=== PATIENT | female | born 1995 | race Caucasian/White ===

== ENCOUNTER → 2023-08-27 06:26 | Day surgery (SDC) | payer BC, SELFPAY | LOC: GI 06:26 | PROVIDERS: ATTENDING PHYSICIAN Internal Medicine Gastroenterology; FAMILY PHYSICIAN Family Medicine | DX: K52.9 Noninfective gastroenteritis and colitis, unspecified (principal); R63.4 Abnormal weight loss; R10.84 Generalized abdominal pain | CPT/HCPCS: 45380; 43239; 88305; 88342 ==

== ENCOUNTER 2023-08-27 14:50 | Emergency (ER) | payer BC, SELFPAY ==
[2023-08-27 14:53] VITALS: BP 118/85
[2023-08-27 15:26] LABS: % Basophils 1.1 % (0-2); % Eosinophils 0.3 % (0-6); % Immature Granulocytes 0.3 % (0-0.5); % Lymphocytes 38.3 % (20.5-51.1); % Monocytes 6.2 % (1.7-9.3); % Neutrophils 53.8 % (42.2-75.2); Absolute Basophils 0.1 10^3/uL (0-0.2); Absolute Lymphocytes 2.5 10^3/uL (1.2-3.4); Absolute Monocytes 0.4 10^3/uL (0.1-0.6); Absolute Neutrophils 3.5 10^3/uL (1.4-6.5); Hematocrit 37.7 % (37.0-47.0); Hemoglobin 13.3 g/dL (12.0-16.0); Mean Corp Hgb Conc. 35.3 g/dL (33.0-37.0); Mean Corpuscular Hgb 32.2 pg (27.0-31.0); Mean Corpuscular Volume 91.3 fL (81.0-99.0); Mean Platelet Volume 9.3 fL (7.4-10.4); Nucleated Red Blood Cells % 0 %; Platelet Count 407 10^3/uL (130-400); Red Blood Cell Count 4.13 10^6/uL (4.20-5.40); Red Cell Dist. Width 11.8 % (11.5-14.5); White Blood Cell Count 6.4 10^3/uL (4.8-10.8)
[2023-08-27 15:34] LABS: ALT (SGPT) 13 U/L (0-35); AST (SGOT) 24 U/L (14-36); Albumin 4.2 g/dl (3.5-5.0); Alkaline Phosphatase 55 U/L (38-126); Blood Urea Nitrogen 4 mg/dl (7-17); Calcium 9.8 mg/dl (8.4-10.2); Carbon Dioxide 21 mmol/L (22-30); Chloride 109 mmol/L (98-107); Glucose 91 mg/dl (70-99); Potassium 4.4 mmol/L (3.5-5.1); Sodium 136 mmol/L (135-145); Total Bilirubin 0.6 mg/dl (0.2-1.3); Total Protein 7.4 g/dl (6.3-8.2); eGFR > 60.00
[2023-08-27 16:55] VITALS: BP 124/80
[2023-08-27] MEDS: ZOFRAN 4 MG IV (17:37)
[2023-08-27] MEDS: DILAUDID 0.5 MG IV ×2 (17:37→20:47)
[2023-08-27] MEDS: VALIUM 2 MG PO (17:37)
[2023-08-27 18:08] LABS: HCG, Serum Qualitative Screen Negative
--- NOTE | 2023-08-27 18:43 | ED.GENMED ---
History of Present Illness
General
Chief Complaint: Post Operative Problem(s)
Source: patient
Exam Limitations: none
Time Seen by Provider: 08/27/23 16:59
Nursing documentation reviewed up to this point in time: agreed with
Travel History
Have you had any contact with someone who has COVID-19?: No
Do you have any symptoms of coronavirus? Fever > 100 degrees, chills, cough, shortness of breath, sore throat, loss of taste or smell, muscle aches, or headache?: No
History of Present Illness
History of Present Illness:
Patient status post outpatient elective endoscopy and colonoscopy procedure this morning, presents to ED secondary to worsening mid back pain, which patient started to experience as she was leaving the hospital this afternoon. Patient does have
history of ankylosing spondylitis and has had upper and lower back pain in the past. Denies direct trauma. Denies loss of sensation or weakness. Denies urinary or bowel incontinence. Denies difficulty with breathing. Denies abdominal pain.
Denies nausea or vomiting. Denies fever. Patient spoke with on-call GI physician who recommended patient come to ED for an evaluation.
Past History
Past History
ED Past Medical History: Arrthythmia
ED Past Surgical History: Tonsilectomy
Social History
Tobacco: Smoker
Alcohol: Occasional
Personal: Single
Employment: Employed
Family History
Family History: Other (IBS)
Review of Systems
Review of Systems
Allergies reviewed?: Yes
All Other Systems: ROS reviewed and negative except as documented in HPI and ROS
Constitutional: Reports no symptoms
EENT: Reports no symptoms
Respiratory: Reports no symptoms
Cardiac: Reports no symptoms
: Reports no symptoms; Denies incontinence
Musculoskeletal: Reports back pain
Skin: Reports no symptoms
Neurological: Reports no symptoms
Phy Exam
Physical Exam
Physical Exam:
Physical Exam
General: no apparent distress, not acutely ill. afebrile.
Head: nc/at. eomi
Neck: supple. no meningeal signs.
Heart: s1/s2 regular rate and rhythm, no murmur. equal radial pulses.
Lungs: no acute respiratory distress. clear bilaterally
Abdomen: normal bowel sounds. not tender.
Back: focal left mid back tenderness at level of T12/L1
Neuro: alert and oriented. no focal neurological deficits
Skin: no rash
Psychiatric: well kept. interactive and cooperative
Extremities: no edema. no calf tenderness.
Course
Orders/Labs/Results
Orders:
Orders
08/27/23 15:07
CMP [Comprehensive Metabolic Panel] Urgent
Complete Blood Count/With Diff Urgent
HCG, Serum Qualitative Screen Urgent
Comment: ADD ON
08/27/23 17:26
Add On- LAB Urgent
Tests Added?: serum b-hcg, qualitative
HYDROmorphone [Dilaudid] 0.5 mg IV NOW STA
08/27/23 17:31
Diazepam [Valium] 2 mg PO NOW STA
Ondansetron Injectable [Zofran] 4 mg IV NOW STA
08/27/23 18:21
CR Obstruct Series W/pa Chest Urgent
Comment:
Reason For Exam: post op pain
08/27/23 19:08
Urinalysis Reflex To Culture Urgent
Date Specimen was Collected: 08/27/23
Time Specimen was Collected: 19:02
08/27/23 20:05
CT Abd/pelvis W Iv Cont Urgent
Comment:
Reason For Exam: mid back pain after colonoscopy
HYDROmorphone [Dilaudid] 0.5 mg IV NOW STA
08/27/23 20:06
Dexamethasone Sod Phosphate [Decadron] 10 mg IV NOW STA
08/27/23 21:46
Oxycodone/Acetaminophen [Percocet 5/325] 1 tablet PO NOW STA
Abnormal Lab Results
08/27/23
15:07
RBC 4.13 L 10^6/uL
(4.20-5.40)
MCH 32.2 H pg
(27.0-31.0)
Plt Count 407 H 10^3/uL
(130-400)
Chloride 109 H mmol/L
(98-107)
Carbon Dioxide 21 L mmol/L
(22-30)
BUN 4 L mg/dl
(7-17)
08/27/23 15:07
08/27/23 15:07
Vital Signs
Initial and Last Documented VS:
Initial Vital Signs
Temp Pulse Resp BP Pulse Ox
98.1 F 95 18 118/85 100
08/27/23 14:53 08/27/23 14:53 08/27/23 14:53 08/27/23 14:53 08/27/23 14:53
Last Documented Vital Signs
Temp Pulse Resp BP Pulse Ox
98.1 F 78 18 122/76 98
08/27/23 14:53 08/27/23 21:57 08/27/23 21:57 08/27/23 21:57 08/27/23 21:57
MDM/Problems Addressed
MDM/Problems Addressed:
Patient with an unremarkable workup in ED, including blood work and multiple imaging studies. History and exam consistent with likely back pain, with associated muscle spasm, secondary to procedural position during colonoscopy. Otherwise, patient
is afebrile, hemodynamic stable, and neurologically intact, at time of discharge to the care of her friend. Patient will be advised to apply warm compress, along with rest and prescribed medications, as needed.
*Critical Care Note
Total Time (30-74mins, 75-104mins- exclusive of procedures): Not Applicable
ED Attending Note
-
Portions of this chart may have been created with voice recognition software.� Occasional wrong word or��sound alike� substitutions may have occurred due to the inherent limitations of voice recognition software.
Discharge Plan
Departure
Patient Disposition: Home (Routine Discharge)
Date of Disposition: 08/27/23
Time of Disposition: 21:46
Patient with high blood pressure during this ER visit?: Yes
Condition: Good
Discharge Problem:
Back pain
Instructions: Back Pain
Prescriptions:
New
oxycodone-acetaminophen [Percocet] 5-325 mg Tablet
1 tab PO Q6HPRN PRN (Reason: pain) Qty: 12 0RF
methylprednisolone [Medrol (Carlos)] 4 mg tablets,dose pack
4 mg PO DAILY Qty: 21 0RF
Rx Instructions:
As directed
No Action
Control
1 tab PO DAILY
acetaminophen 325 MG tablet
650 mg PO Q4HPRN PRN (Reason: mild pain/FARRELL/temp> 100.4F) 0RF
ibuprofen 600 MG tablet
600 mg PO Q6HPRN PRN (Reason: finger pain) 10 Days Qty: 40 0RF
Rx Instructions:
Do not take on empty stomach. Take with food
oxycodone-acetaminophen [Percocet] 5-325 mg tablet
1 tab PO Q6HPRN PRN (Reason: pain) Qty: 10 0RF
Referrals:
Anamaria Greer MD [Family Provider] -
Activity Restrictions/Additional Instructions:
As discussed, please follow-up with your primary care physician and/or orthopedic surgeon for further evaluation and treatment. Your prescriptions have been sent electronically to [facility] pharmacy in [place].
Interventions
Interventions:
*Risk Screen - Suicide Last Done: 08/27/23 16:52
*General Assessment Last Done: 08/27/23 16:52
*Neglect/Abuse Screening Last Done: 08/27/23 16:52
ED- Fall Risk Assessment Last Done: 08/27/23 17:24
*ED COVID-19 Vaccine History Last Done: 08/27/23 16:52
*Nursing Disposition Last Done: 08/27/23 21:59
ED-Skin Assessment Last Done: 08/27/23 17:23
Discharge Date and Time
Discharge Date/Time: 08/27/23 21:59
[2023-08-27 19:31] LABS: Urine Albumin Negative (Neg - Trace); Urine Bilirubin Negative (Negative); Urine Character Clear (Clear); Urine Color Yellow; Urine Glucose Negative (Negative); Urine Ketone Negative (Negative); Urine Leukocyte Negative (Negative); Urine Nitrite Negative (Negative); Urine Occult Blood Negative (Negative); Urine Urobilinogen Negative (Neg - 1+)
[2023-08-27] MEDS: DECADRON 10 MG IV (20:46)
[2023-08-27] MEDS: PERCOCET 5/325 1 TABLET PO (21:51)
[2023-08-27 21:57] VITALS: BP 122/76
== END 2023-08-27 21:59 | disposition home or self-care (01) ==
LOC: EMR 14:50
PROVIDERS: Physician Assistant Medical; EMERGENCY PHYSICIAN Emergency Medicine; FAMILY PHYSICIAN Family Medicine
DX: M54.6 Pain in thoracic spine (principal); F17.200 Nicotine dependence, unspecified, uncomplicated; R03.0 Elevated blood-pressure reading, without diagnosis of hypertension
CPT/HCPCS: 99285; 96374; 96375 ×2; 96376; 74022; 74177; 80053; 81003; 84703; 85025; Q9967

== ENCOUNTER → 2023-11-27 15:18 | Outpatient (REF) | payer BC, SELFPAY | LOC: RAD 15:18 | PROVIDERS: ATTENDING PHYSICIAN Family Medicine | DX: R10.2 Pelvic and perineal pain (principal); R31.29 Other microscopic hematuria | CPT/HCPCS: 76770; 76830; 76856 ==

== ENCOUNTER → 2024-03-05 18:28 | Outpatient (REF) | payer BC, SELFPAY | LOC: RAD 18:28 | PROVIDERS: ATTENDING PHYSICIAN Nurse Practitioner Adult Health; FAMILY PHYSICIAN Family Medicine | DX: R07.89 Other chest pain (principal); R53.83 Other fatigue; R52 Pain, unspecified | CPT/HCPCS: 71046 ==

== ENCOUNTER → 2024-08-24 16:58 | Outpatient (REF) | payer BC, SELFPAY | LOC: RAD 16:58 | PROVIDERS: ATTENDING PHYSICIAN Family Medicine | DX: R07.89 Other chest pain (principal); R06.02 Shortness of breath; M54.6 Pain in thoracic spine | CPT/HCPCS: 71046; 72072 ==

== ENCOUNTER 2024-08-25 12:45 | Emergency (ER) | payer BC, SELFPAY ==
[2024-08-25 12:52] VITALS: BP 147/111
[2024-08-25 13:17] LABS: % Basophils 0.1 % (0-2); % Eosinophils 0.6 % (0-6); % Immature Granulocytes 0.3 % (0-0.5); % Lymphocytes 25.9 % (20.5-51.1); % Monocytes 4.3 % (1.7-9.3); % Neutrophils 68.8 % (42.2-75.2); Absolute Eosinophils 0.1 10^3/uL (0-0.7); Absolute Lymphocytes 2.8 10^3/uL (1.2-3.4); Absolute Monocytes 0.5 10^3/uL (0.1-0.6); Absolute Neutrophils 7.5 10^3/uL (1.4-6.5); Hematocrit 40.2 % (37.0-47.0); Hemoglobin 13.8 g/dL (12.0-16.0); Mean Corp Hgb Conc. 34.3 g/dL (33.0-37.0); Mean Corpuscular Hgb 31.7 pg (27.0-31.0); Mean Corpuscular Volume 92.4 fL (81.0-99.0); Mean Platelet Volume 8.3 fL (7.4-10.4); Nucleated Red Blood Cells % 0 %; Platelet Count 402 10^3/uL (130-400); Red Blood Cell Count 4.35 10^6/uL (4.20-5.40); Red Cell Dist. Width 12.3 % (11.5-14.5); White Blood Cell Count 10.9 10^3/uL (4.8-10.8)
[2024-08-25 13:28] LABS: HCG, Serum Qualitative Screen Negative
[2024-08-25 13:34] LABS: ALT (SGPT) 12 U/L (0-35); AST (SGOT) 20 U/L (14-36); Albumin 4.3 g/dl (3.5-5.0); Alkaline Phosphatase 72 U/L (38-126); Blood Urea Nitrogen 9 mg/dl (7-17); Calcium 9.6 mg/dl (8.4-10.2); Carbon Dioxide 27 mmol/L (22-30); Chloride 98 mmol/L (98-107); Glucose 101 mg/dl (70-99); Potassium 4.2 mmol/L (3.5-5.1); Sodium 134 mmol/L (135-145); Total Bilirubin 1.1 mg/dl (0.2-1.3); Total Protein 7.2 g/dl (6.3-8.2); eGFR > 60.00
[2024-08-25 14:01] LABS: TSH 2.81 uIU/ml (0.47-4.68)
--- NOTE | 2024-08-25 16:54 | ED.GENMED ---
History of Present Illness
<Lavinia Joseph PA-C - Last Filed: 08/25/24 20:56>
General
Chief Complaint: Heart Rate Problem
Source: patient
Exam Limitations: none
Time Seen by Provider: 08/25/24 16:18
Nursing documentation reviewed up to this point in time: agreed with
History of Present Illness
History of Present Illness:
28-year-old female with history ankylosing spondylitis and fibromyalgia presenting to the emergency department for evaluation of chest pain. Patient reports 2.5 weeks of intermittent sharp mid chest pain without any radiation to back, jaw.
Symptoms seem to come on 'randomly 'and are not clearly exertional or pleuritic in nature. Patient has been following with her PCP regarding this and recently finished a 10-day prednisone taper course and was treated with Flexeril and ibuprofen.
Patient reports little improvement. Today�she also notes a hive-like rash across her body which is somewhat improved.
Patient denies any shortness of breath, back pain, cough or other URI symptoms. No abdominal pain.
Patient does report history of tachycardia of unknown origin.
Patient denies recent travel or recent surgery. She is on an OCP. She does have a family history of blood clots.
Past History
<Lavinia Joseph PA-C - Last Filed: 08/25/24 20:56>
Past History
ED Past Medical History: Arrthythmia
ED Past Surgical History: Tonsilectomy
Social History
Tobacco: Smoker
Alcohol: Occasional
Personal: Single
Employment: Employed
Family History
Family History: Other (IBS)
Review of Systems
<PRISCILLA Claire Last Filed: 08/25/24 20:56>
Review of Systems
Allergies reviewed?: Yes
All Other Systems: ROS reviewed and negative except as documented in HPI and ROS
Phy Exam
<PRISCILLA Claire Last Filed: 08/25/24 20:56>
Physical Exam
Physical Exam:
Vitals: Hypertensive, tachycardic
General: Patient is well appearing, no acute distress. Nontoxic appearing
Skin: Warm and dry, no rashes or lesions
Head: Normocephalic, atraumatic
Eyes: Sclera nonicteric. EOMs intact. No nystagmus.
Throat: Protecting airway
Neck: Normal ROM, no cervical spine tenderness, no meningismus
Cardiac: Regular rate and rhythm, no murmurs. No reproducible chest wall tenderness
Pulm: Normal respiratory effort, no wheezes, rales, rhonchi heard on exam.
Abdomen: Abdomen soft. No abdominal tenderness.
Extremities: No evidence of cyanosis or edema. Negative Homans' sign bilaterally. Palpable and equal distal pulses
Neuro: AAOx3. Grossly intact.
Psychiatric: Normal affect.
Scores
<Lavinia Joseph PA-C - Last Filed: 08/25/24 20:56>
PERC Rule Criteria
Age <50 years: Yes
HR <100 bpm: No
Room air oxygen sat >94%: Yes
History of DVT or PE: No
Recent trauma or surgery: No
Hemoptysis: No
Exogenous estrogen: Yes
Clinical signs suggestive of DVT: No
: No
Considered low risk for PE: Yes
PERC Score: 2
PE can be excluded by PERC: No
<German Acosta, - Last Filed: 08/25/24 19:46>
PERC Rule Criteria
PERC Score: 2
PE can be excluded by PERC: No
Course
<Lavinia Joseph PA-C - Last Filed: 08/25/24 20:56>
Orders/Labs/Results
Orders:
Orders
08/25/24 12:57
EKG [Electrocardiogram (*1)] Urgent
Reason for Study: Tachycardia
EKG- Treatment ONCE
Test Result ONCE
08/25/24 13:06
Complete Blood Count/With Diff Urgent
Comprehensive Metabolic Panel Urgent
HCG, Serum Qualitative Screen Urgent
Monotest Urgent
Comment: ADD ON
TSH Urgent
08/25/24 16:45
Add On- LAB Urgent
Tests Added?: monospot
0.9% Sodium Chloride 1000 ml [Nss] 1,000 ml IV BOLUS
Ketorolac [Toradol] 15 mg IV NOW STA
08/25/24 16:59
COVID-19 Antigen Urgent
Source: Nasal Swab
D-Dimer Urgent
Troponin I Urgent
Influenza A+B Rapid Molecular Urgent
OVIDIO Source: Nasal Swab
Specimen Description:
08/25/24 17:33
CT Chest PE Study Urgent
Comment:
Reason For Exam: chest pain, elevated dimer
08/25/24 17:50
Acetaminophen [Tylenol] 650 mg PO NOW STA
Abnormal Lab Results
08/25/24 08/25/24
13:06 16:59
WBC 10.9 H 10^3/uL
(4.8-10.8)
MCH 31.7 H pg
(27.0-31.0)
Plt Count 402 H 10^3/uL
(130-400)
Absolute Neuts (auto) 7.5 H 10^3/uL
(1.4-6.5)
D-Dimer 1.69 H ug/mlFEU
(0.00-0.50)
Sodium 134 L mmol/L
(135-145)
Glucose 101 H mg/dl
(70-99)
08/25/24 13:06
08/25/24 13:06
Vital Signs
Pulse: 98
Initial and Last Documented VS:
Initial Vital Signs
Temp Pulse Resp BP Pulse Ox
98.0 F 128 18 147/111 99
08/25/24 12:52 08/25/24 12:52 08/25/24 12:52 08/25/24 12:52 08/25/24 12:52
Last Documented Vital Signs
Temp Pulse Resp BP Pulse Ox
98.0 F 98 18 120/81 98
08/25/24 12:52 08/25/24 19:48 08/25/24 12:52 08/25/24 19:25 08/25/24 19:26
<German Acosta, DO - Last Filed: 08/25/24 19:46>
Orders/Labs/Results
Orders:
Orders
08/25/24 12:57
EKG [Electrocardiogram (*1)] Urgent
Reason for Study: Tachycardia
EKG- Treatment ONCE
Test Result ONCE
08/25/24 13:06
Complete Blood Count/With Diff Urgent
Comprehensive Metabolic Panel Urgent
HCG, Serum Qualitative Screen Urgent
Monotest Urgent
Comment: ADD ON
TSH Urgent
08/25/24 16:45
Add On- LAB Urgent
Tests Added?: monospot
0.9% Sodium Chloride 1000 ml [Nss] 1,000 ml IV BOLUS
Ketorolac [Toradol] 15 mg IV NOW STA
08/25/24 16:59
COVID-19 Antigen Urgent
Source: Nasal Swab
D-Dimer Urgent
Troponin I Urgent
Influenza A+B Rapid Molecular Urgent
OVIDIO Source: Nasal Swab
Specimen Description:
08/25/24 17:33
CT Chest PE Study Urgent
Comment:
Reason For Exam: chest pain, elevated dimer
08/25/24 17:50
Acetaminophen [Tylenol] 650 mg PO NOW STA
Abnormal Lab Results
08/25/24 08/25/24
13:06 16:59
WBC 10.9 H 10^3/uL
(4.8-10.8)
MCH 31.7 H pg
(27.0-31.0)
Plt Count 402 H 10^3/uL
(130-400)
Absolute Neuts (auto) 7.5 H 10^3/uL
(1.4-6.5)
D-Dimer 1.69 H ug/mlFEU
(0.00-0.50)
Sodium 134 L mmol/L
(135-145)
Glucose 101 H mg/dl
(70-99)
08/25/24 13:06
08/25/24 13:06
Vital Signs
Initial and Last Documented VS:
Initial Vital Signs
Temp Pulse Resp BP Pulse Ox
98.0 F 128 18 147/111 99
08/25/24 12:52 08/25/24 12:52 08/25/24 12:52 08/25/24 12:52 08/25/24 12:52
Last Documented Vital Signs
Temp Pulse Resp BP Pulse Ox
98.0 F 98 18 120/81 98
08/25/24 12:52 08/25/24 19:48 08/25/24 12:52 08/25/24 19:25 08/25/24 19:26
<Lavinia Joseph PA-C - Last Filed: 08/25/24 20:56>
MDM/Problems Addressed
Differential Diagnosis Includes:
Not limited to: Viral illness, myocarditis, pericarditis, pulmonary embolism, urticaria, etc.
MDM/Problems Addressed:
28-year-old female with history as documented presenting with intermittent chest pain for the past 2.5 weeks now with new onset rash. Also notes elevated heart rate which is somewhat chronic for patient. No shortness of breath, lower extremity
swelling. She has completed prednisone taper course and anti-inflammatories with PCP. Patient initially hypertensive and tachycardic on arrival although did normalize in ED. Physical exam as above. Patient appears mildly anxious although no
apparent distress. Patient tachycardic with normal rhythm. Lungs clear bilaterally. Abdomen soft nontender. No swelling or edema of bilateral lower extremities. Patient has palpable and equal distal pulses bilaterally. No rash on exam
currently. EKG obtained in triage shows sinus tachycardia without acute ischemic changes. Labs initiated in triage without acute abnormalities. TSH normal. Differential diagnosis broad at this time. Did evaluate pictures of rash from earlier
which appear similar to hives. Was able to obtain patient's chest x-ray performed outpatient yesterday which is without any abnormalities. Possible underlying viral cause. Will check troponin. No clinical evidence of DVT on exam. Feel pulmonary
embolism unlikely although unable to rule out PERC criteria given tachycardia and OCP use. Will check D-dimer and viral swabs. Will give Toradol and fluids.
Update: Dimer elevated to 1.69. CTA chest pending. Viral swabs negative, including mono. Troponin undetectable. Do not suspect ACS
Update: CTA chest without any acute abnormalities. On reassessment�she does still have mild chest discomfort although heart rate has normalized to upper 90s. Unknown exact etiology of chest pain today. Rash is dissipated. Low suspicion for acute
cardiac/pulmonary process. This may be related to possible underlying autoimmune conditions or musculoskeletal in nature. Lengthy discussion with patient regarding return precautions. Advised with primary care and rheumatology follow-up
outpatient. All questions answered. Patient seen with attending physician
Chronic conditions affecting care:
N/A
Acute Exacerbation and/or Progression of Chronic Illness:
N/A
<Lavinia Joseph PA-C - Last Filed: 08/25/24 20:56>
*Radiology
Radiology exam reviewed: radiology read reviewed
*Pulse Oximetry
Patient hypoxic: no
*EKG
Interpreted by ED Provider?: Yes
EKG Intrepretation Date: 08/25/24
Interpretation: abnormal
Comparison EKG: no comparison EKG present
Heart Rate: 113
Rate: tachycardiac
Rhythm: sinus
Bradley: normal axis
Interval: normal interval
QRS Pattern: normal QRS
Ischemia: no ischemia
*Mail Manager Interpretation
Rate: Mail Manager- N/A
*Critical Care Note
Total Time (30-74mins, 75-104mins- exclusive of procedures): Not Applicable
<Lavinia Joseph PA-C - Last Filed: 08/25/24 20:56>
Patient Management
Escalation/DeEscalation of care consider admission/obs:
Admit not indicated
ED Attending Note
<Lavinia Joseph PA-C - Last Filed: 08/25/24 20:56>
-
Portions of this chart may have been created with voice recognition software.� Occasional wrong word or��sound alike� substitutions may have occurred due to the inherent limitations of voice recognition software.
<German Acosta, - Last Filed: 08/25/24 19:46>
ED Attending Note
Patient seen and examined by attending physician: Yes
I performed a history and physical exam of patient and discussed management with resident, I reviewed resident's note and agree with documented findings and plan of care.: Yes
ED Attending Note:
I reviewed and agree with history and treatment plan by Lavinia Joseph. My exam revealed
Physical Exam
General: no apparent distress, not acutely ill
Neck: supple. no meningeal signs. normal posterior pharynx
Heart: s1/s2 regular rate and rhythm, no murmur. equal radial
pulses.
HEENT: Pupils equal round reactive to light, EOMI
Lungs: no acute respiratory distress. clear bilaterally
Abdomen: normal bowel sounds. not tender. no CVAT
Neuro: alert and oriented. no focal neurological deficits cranial nerves II through XII intact
Skin: no rash
Psychiatric: well kept. interactive and cooperative
Extremities: no edema. no calf tenderness. negative homans. good distal pulses
Unclear etiology of pain, possibly musculoskeletal. Do not suspect PE or ACS. Unclear etiology of rash that is now dissipated. Stable for discharge. Follow-up with primary care and rheumatology.
Discharge Plan
Departure
Patient Disposition: Home (Routine Discharge)
Date of Disposition: 08/25/24
Time of Disposition: 19:44
Patient with high blood pressure during this ER visit?: Yes
Discharge Problem:
Chest pain
Instructions: Tachycardia, Chest Pain
Prescriptions:
No Action
Control
1 tab PO DAILY
acetaminophen 325 MG tablet
650 mg PO Q4HPRN PRN (Reason: mild pain/FARRELL/temp> 100.4F) 0RF
ibuprofen 600 MG tablet
600 mg PO Q6HPRN PRN (Reason: finger pain) 10 Days Qty: 40 0RF
Rx Instructions:
Do not take on empty stomach. Take with food
oxycodone-acetaminophen [Percocet] 5-325 mg tablet
1 tab PO Q6HPRN PRN (Reason: pain) Qty: 10 0RF
oxycodone-acetaminophen [Percocet] 5-325 mg Tablet
1 tab PO Q6HPRN PRN (Reason: pain) Qty: 12 0RF
methylprednisolone [Medrol (Carlos)] 4 mg tablets,dose pack
4 mg PO DAILY Qty: 21 0RF
Rx Instructions:
As directed
Referrals:
Anamaria Greer MD [Family Provider] - Follow up in 2-3 days
Activity Restrictions/Additional Instructions:
As discussed�your CT scan of your chest showed no evidence of a pulmonary embolism or other acute abnormality.
You can continue to take ibuprofen as needed for discomfort. Stay well-hydrated. Get plenty of rest.
Follow-up with your primary care and rheumatology for further evaluation/management
Monitor your symptoms closely return with any acute worsening/new symptoms or any other concern
Interventions
Interventions:
*Risk Screen - Suicide Last Done: 08/25/24 12:52
*General Assessment Last Done: 08/25/24 12:52
*Neglect/Abuse Screening Last Done: 08/25/24 12:52
ED- Fall Risk Assessment Last Done: 08/25/24 16:40
*ED COVID-19 Vaccine History Last Done: 08/25/24 12:52
*Nursing Disposition Last Done: 08/25/24 20:41
ED- Cardiac Assessment Last Done: 08/25/24 16:40
ED- Pulmonary Assessment Last Done: 08/25/24 16:40
ED-Skin Assessment Last Done: 08/25/24 16:41
Discharge Date and Time
Print Language: SAMOAN
[2024-08-25] MEDS: NSS 1000 IV (17:04)
[2024-08-25] MEDS: TORADOL 15 MG IV (17:07)
[2024-08-25 17:25] LABS: D-Dimer 1.69 ug/mlFEU (0.00-0.50)
[2024-08-25 17:28] LABS: Monotest Negative (Negative)
[2024-08-25 17:40] LABS: COVID-19 Antigen Negative (Negative); Troponin I < 0.012 ng/ml
[2024-08-25] MEDS: TYLENOL 650 MG PO (18:22)
[2024-08-25 19:25] VITALS: BP 120/81
== END 2024-08-25 20:49 | disposition home or self-care (01) ==
LOC: EMR 12:45
PROVIDERS: Physician Assistant; Student in an Organized Health Care Education/Training Program; EMERGENCY PHYSICIAN Emergency Medicine; FAMILY PHYSICIAN Family Medicine
DX: R07.89 Other chest pain (principal); R21 Rash and other nonspecific skin eruption; J02.9 Acute pharyngitis, unspecified; R00.0 Tachycardia, unspecified; Z11.52 Encounter for screening for COVID-19; M45.9 Ankylosing spondylitis of unspecified sites in spine; M79.7 Fibromyalgia; F17.200 Nicotine dependence, unspecified, uncomplicated; Z88.1 Allergy status to other antibiotic agents; Z91.040 Latex allergy status
CPT/HCPCS: 99284; 96361; 96374; 71275; 80053; 84443; 84484; 84703; 85025; 85379; 86308; 87502; 87811; 93005; Q9967

== ENCOUNTER → 2024-09-14 15:20 | Outpatient (REF) | payer BC, SELFPAY | LOC: HWRCS 15:20 | PROVIDERS: ATTENDING PHYSICIAN Internal Medicine; FAMILY PHYSICIAN Family Medicine | DX: R06.02 Shortness of breath (principal); I31.39 Other pericardial effusion (noninflammatory); I31.9 Disease of pericardium, unspecified | CPT/HCPCS: 93306 ==

== ENCOUNTER → 2025-04-20 14:29 | Outpatient (REF) | payer BC, SELFPAY | LOC: RAD 14:29 | PROVIDERS: ATTENDING PHYSICIAN Internal Medicine; FAMILY PHYSICIAN Family Medicine | DX: R59.0 Localized enlarged lymph nodes (principal); C85.90 Non-Hodgkin lymphoma, unspecified, unspecified site; M32.9 Systemic lupus erythematosus, unspecified; N20.0 Calculus of kidney; R31.9 Hematuria, unspecified | CPT/HCPCS: 76536; 76770 ==